=== PATIENT | male | born 2000 ===

== ENCOUNTER 2024-06-26 11:01 | Emergency (ER) | payer BC, SELFPAY ==
[2024-06-26 11:08] VITALS: BP 152/102
[2024-06-26 12:00] VITALS: BP 150/97
[2024-06-26 12:03] VITALS: BMI 35.5
--- NOTE | 2024-06-26 12:07 | EDRN ---
Pt was making statements about people trying to harm him ( reported). He has not reported this to me. He follows commands and answers my questions appropriately
--- NOTE | 2024-06-26 12:50 | ED.GENMED ---
History of Present Illness
General
Chief Complaint: Psychiatric Problem
Source: patient and family
Exam Limitations: none
Time Seen by Provider: 06/26/24 11:45
Nursing documentation reviewed up to this point in time: agreed with
History of Present Illness
History of Present Illness:
23-year-old male history of bipolar schizophrenia drug-induced psychosis 2 prior hospitalizations works as a associate programmer analyst, has not been sleeping very much lately occasionally uses alcohol and smokes which is his usual trigger is been hearing voices,
he has been manic paranoid thinks he is being poisoned saw his outpatient psychiatrist yesterday given trazodone and Zyprexa which helped a little bit apparently was agitated with his mother, father believes he he needs to be hospitalized, not
suicidal
Past History
Past History
ED Past Medical History: Psychiatric
Social History
Tobacco: Non-smoker
Alcohol: Occasional
Drug: Marijuana
Personal: Single
Living: with family
Employment: Employed
Review of Systems
Review of Systems
Other source history: family
All Other Systems: Not applicable
Constitutional: Reports sleep disturbance; Denies fever
EENT: Reports no symptoms
Respiratory: Reports no symptoms
Cardiac: Reports no symptoms
Psychiatric: Reports anxiety, hallucinations and other (Paranoid); Denies depression or suicidal
Phy Exam
Physical Exam
Physical Exam:
Physical Exam
General: no apparent distress, not acutely ill
Neck: No jaundice
Heart: s1/s2 regular rate and rhythm, no murmur. equal radial pulses.
Lungs: no acute respiratory distress. clear bilaterally
Neuro: alert and oriented. no focal neurological deficits
Skin: no rash
Psychiatric speech is pressured paranoid
Extremities: no edema.
Course
Orders/Labs/Results
Orders:
Orders
06/26/24 12:18
Crisis Consult Routine
Reason for Consult: 201
06/26/24 13:13
Acetaminophen Urgent
Alcohol Urgent
Complete Blood Count/With Diff Urgent
Comprehensive Metabolic Panel Urgent
Drug Screen, Urine [Urine Drug Abuse Screen] Urgent
Salicylate Urgent
Vital Signs
Initial and Last Documented VS:
Initial Vital Signs
Temp Pulse Resp BP Pulse Ox
98.7 F 77 16 152/102 99
06/26/24 11:08 06/26/24 11:08 06/26/24 11:08 06/26/24 11:08 06/26/24 11:08
Last Documented Vital Signs
Temp Pulse Resp BP Pulse Ox
98.7 F 81 16 150/97 98
06/26/24 11:08 06/26/24 12:00 06/26/24 12:00 06/26/24 12:00 06/26/24 12:00
MDM/Problems Addressed
Differential Diagnosis Includes:
Bipolar psychosis drug-induced psychosis
MDM/Problems Addressed:
Annamarie
Chronic conditions affecting care: Psychiatric illness
Acute Exacerbation and/or Progression of Chronic Illness: Psychiatric illness
*Pulse Oximetry
Patient hypoxic: no
*Critical Care Note
Total Time (30-74mins, 75-104mins- exclusive of procedures): Not Applicable
Update Note
Update Note:
Patient apparently is voluntary to go to [facility] crisis has been consulted to help facilitate that previously was at [facility]
Reviewed with crisis and request blood work, patient refused blood work
ED Attending Note
-
Portions of this chart may have been created with voice recognition software.� Occasional wrong word or��sound alike� substitutions may have occurred due to the inherent limitations of voice recognition software.
Discharge Plan
Departure
Patient Disposition: Psych Facility
Date of Disposition: 06/26/24
Time of Disposition: 13:26
Patient with high blood pressure during this ER visit?: No
Condition: Good
Discharge Problem:
acute annamarie
Prescriptions:
No Action
olanzapine 10 mg Tablet
10 mg PO DAILY
Referrals:
NONE,* [Family Provider] -
Interventions
Interventions:
*Risk Screen - Suicide Last Done: 06/26/24 11:10
ED- Fall Risk Assessment Last Done: 06/26/24 13:19
*ED COVID-19 Vaccine History Last Done: 06/26/24 12:06
ED-Psychological Assessment Last Done: 06/26/24 12:06
Discharge Date and Time
Print Language: GUAMANIAN
[2024-06-26 16:42] LABS: Amphetamines Negative (Negative); Barbiturates Negative (Negative); Benzodiazepines Negative (Negative); Buprenorphine Negative (Negative); Cocaine Negative (Negative); Marijuana Positive (Negative); Methadone Negative (Negative); Methamphetamines Negative (Negative); Opiates Negative (Negative); Phencyclidine Negative (Negative); Tricyclic Antidepressants Negative (Negative)
[2024-06-26 20:18] VITALS: BP 155/94
== END 2024-06-26 21:20 ==
LOC: EMR 11:01
PROVIDERS: EMERGENCY PHYSICIAN Emergency Medicine
DX: F30.9 Manic episode, unspecified (principal); F20.9 Schizophrenia, unspecified
CPT/HCPCS: 99283; 80306